=== PATIENT | female | born 1965 | race Caucasian/White ===

== ENCOUNTER 2017-11-16 14:16 | Emergency (ER) | payer OTHER ==
[2017-11-16] MEDS: SOD CHLORIDE 0.9% 500 ML IV (15:42)
[2017-11-16] MEDS: KETOROLAC 15 MG INJ IV (15:42)
[2017-11-16] MEDS: ONDANSETRON 4 MG INJ IV (15:42)
[2017-11-16] MEDS: ALPRAZOLAM 0.25 MG TAB PO (15:42)
== END 2017-11-16 18:34 | disposition home or self-care (01) ==
LOC: E/R 14:16
DX: M54.5 Low back pain (principal); E66.9 Obesity, unspecified
CPT/HCPCS: 96374; 96375; 99284-25